=== PATIENT | female | born 1995 | race American Indian/Alaskan Native ===

== ENCOUNTER 2017-11-10 13:33 | Outpatient (CLI) | payer OTHER ==
[2017-11-10] MEDS ORDERED: LACTATED RINGERS 500 ML IV ONE (13:43)
[2017-11-10 13:53] VITALS: BP 108/57
[2017-11-10 14:39] LABS: Bacteria,Urine 1+ /HPF (Negative); Bilirubin,Urine NEG (Negative); Blood,Urine NEG (Negative); Color,Urine Yellow (Yellow); Mucus,Urine FEW /HPF; Protein,Urine <15 mg/dL mg/dL (Negative); Urobilinogen,Urine < 2.0 mg/dL (<2.0)
== END 2017-11-10 15:15 | disposition home or self-care (01) ==
LOC: TRG 13:33
PROVIDERS: ATTEND Obstetrics & Gynecology
DX: O47.02 False labor before 37 completed weeks of gestation, second trimester (principal); Z3A.19 19 weeks gestation of pregnancy
CPT/HCPCS: 59025; 81001

== ENCOUNTER 2018-01-14 13:22 | Outpatient (CLI) | payer OTHER ==
[2018-01-14] MEDS ORDERED: LACTATED RINGERS 1,000 ML IV ONE (13:36)
[2018-01-14 14:48] LABS: Bacteria,Urine 2+ /HPF (Negative); Bilirubin,Urine NEG (Negative); Blood,Urine NEG (Negative); Color,Urine Yellow (Yellow); Mucus,Urine FEW /HPF; Protein,Urine <15 mg/dL mg/dL (Negative)
[2018-01-14 15:21] VITALS: BP 119/67
== END 2018-01-14 15:30 | disposition home or self-care (01) ==
LOC: TRG 13:22
PROVIDERS: ATTEND Obstetrics & Gynecology
DX: O47.02 False labor before 37 completed weeks of gestation, second trimester (principal); Z3A.29 29 weeks gestation of pregnancy
CPT/HCPCS: 59025; 81001; 96360; J7120

== ENCOUNTER 2018-02-21 19:23 | Outpatient (CLI) | payer OTHER ==
[2018-02-21 20:06] VITALS: BP 117/56
[2018-02-21] MEDS: LACTATED RINGERS 1,000 ML IV ONE (20:39)
[2018-02-21 21:02] LABS: Bacteria,Urine 3+ /HPF (Negative); Bilirubin,Urine NEG (Negative); Blood,Urine NEG (Negative); Color,Urine Yellow (Yellow); Mucus,Urine FEW /HPF; Protein,Urine <15 mg/dL mg/dL (Negative)
== END 2018-02-21 21:51 | disposition home or self-care (01) ==
LOC: TRG 19:23
PROVIDERS: ATTEND Obstetrics & Gynecology
DX: O26.893 Other specified pregnancy related conditions, third trimester (principal); R10.30 Lower abdominal pain, unspecified; Z3A.34 34 weeks gestation of pregnancy
CPT/HCPCS: 59025; 81001; 96360; J7120

== ENCOUNTER 2018-03-03 20:04 | Outpatient (CLI) | payer OTHER ==
[2018-03-03] MEDS ORDERED: VISTARIL PO ONE (20:44)
--- NOTE | 2018-03-03 22:34 | Event Note ---
Date: 03/03/18 22 year old female at 36 weeks gestation presents to L&D triage due to feeling a contraction earlier this evening. Patient denies vaginal bleeding or leaking of fluid. Patient reports active movement. NST reactive. Accelerations present. Cervix is closed and thick; one contraction only noted on EFM. It was determinted that patient is not in active labor and patient was discharged home. labor precautions given. Patient is to follow up with her primary OB as soon as possible.
[2018-03-06 22:49] VITALS: BP 113/63
== END 2018-03-03 21:00 | disposition home or self-care (01) ==
LOC: TRG 20:04
PROVIDERS: ATTEND Obstetrics & Gynecology
DX: O47.03 False labor before 37 completed weeks of gestation, third trimester (principal); O99.013 Anemia complicating pregnancy, third trimester; Z3A.36 36 weeks gestation of pregnancy
CPT/HCPCS: 59025; Q0177

== ENCOUNTER 2018-03-06 19:52 | Outpatient (CLI) | payer OTHER ==
[2018-03-06] MEDS ORDERED: LACTATED RINGERS 500 ML IV ONE (19:58)
[2018-03-06 21:06] VITALS: BP 113/77
[2018-03-06] MEDS ORDERED: LACTATED RINGERS 1,000 ML IV ONE (21:34)
[2018-03-06] MEDS ORDERED: VISTARIL PO STA (23:08)
[2018-03-06 23:21] LABS: Bilirubin,Urine NEG (Negative); Blood,Urine NEG (Negative); Color,Urine Yellow (Yellow); Hyaline Casts,Urine 1 /LPF; Protein,Urine <15 mg/dL mg/dL (Negative); Urobilinogen,Urine < 2.0 mg/dL (<2.0); WBC,Urine < 1.0 /HPF (0.0-6.0)
== END 2018-03-06 23:37 | disposition home or self-care (01) ==
LOC: TRG 19:52
PROVIDERS: ATTEND Obstetrics & Gynecology
DX: O47.03 False labor before 37 completed weeks of gestation, third trimester (principal); Z3A.36 36 weeks gestation of pregnancy
CPT/HCPCS: 59025; 81001; 96360; 96361; J7120; Q0177

== ENCOUNTER 2018-03-10 22:05 | Inpatient (IN) | payer OTHER ==
[2018-03-10 23:31] LABS: Hematocrit 27.7 % (30.3-42.9); Hemoglobin 9.1 gm/dl (10.1-14.3); Mean Corpuscular HGB Conc 33 % (30-34); Mean Corpuscular Volume 72 fl (79-97); Platelet Count 251 K/mm3 (140-440); Red Blood Count 3.84 M/mm3 (3.65-5.03); Red Cell Distribution Width 18.7 % (13.2-15.2)
[2018-03-10 23:48] LABS: Alanine Aminotransferase 7 units/L (7-56); Uric Acid 2.6 mg/dL (3.5-7.6)
[2018-03-10 23:51] LABS: Mean Corpuscular Hemoglobin 24 pg (28-32)
[2018-03-11 00:02] LABS: Bacteria,Urine 2+ /HPF (Negative); Bilirubin,Urine NEG (Negative); Blood,Urine NEG (Negative); Color,Urine Yellow (Yellow); Mucus,Urine FEW /HPF; Protein,Urine <15 mg/dL mg/dL (Negative)
[2018-03-11] MEDS ORDERED: BRETHINE IVP PRN (02:06)
[2018-03-11] MEDS ORDERED: XYLOCAINE 2% INFILTRATI ONE (02:06)
[2018-03-11] MEDS ORDERED: BRETHINE SUB-Q PRN (02:06)
[2018-03-11] MEDS ORDERED: ePHEDrine SULFATE IV PRN ×2 (02:06→21:46)
[2018-03-11] MEDS ORDERED: MINERAL OIL PO PRN (02:06)
[2018-03-11] MEDS ORDERED: STADOL IV PRN (02:06)
[2018-03-11] MEDS ORDERED: ZOFRAN IV PRN ×2 (02:06→22:48)
[2018-03-11] MEDS ORDERED: SUBLIMAZE IV PRN (02:06)
[2018-03-11] MEDS ORDERED: POLYCILLIN/NS 2 GM/100 ML 2 GM/100 ML BAG IV ONE (02:06)
--- NOTE | 2018-03-11 02:12 | Ultrasound Report ---
FINAL REPORT EXAM: US OB LIMITED HISTORY: Leaking Fluid TECHNIQUE: Transabdominal sonographic evaluation was performed of the female pelvis for RADHA. Estimated age by dates 37 week 1 day. PRIORS: None. FINDINGS: Measurements: heart rate is documented at 137 beats per minute. Amniotic fluid index equal 6.0 cm. 2 vertical pockets are noted measuring > 2cm in depth. IMPRESSION: Single, viable intrauterine , heart rate 137 beats per minute. Borderline oligohydraminos estimated at 6.0 cm. (Note: Borderline oligohydraminos reported at 6-8cm and severe oligohydramnios < 5cm). OB consultation is indicated.
--- NOTE | 2018-03-11 02:13 | History and Physical Report ---
History of Present Illness Date of examination: 03/11/18 Chief complaint: Leaking fluid History of present illness: Pt is a 22yo BF EDC 03/31/18; EGA 37 1/7 weeks presents to L&D complaining of leaking fluid since this am. Ob u/s showed RADHA 6.0 She recieved care at [facility] since 13 weeks and course has been remarkable for a placenta previa which has since resolved, and a history of anxiety and depression for which she takes Seroquel from her Psychiatrist. records are available and GBS is negative. Past History Past Medical History: other (anxiety and depression) Past Surgical History: no surgical history Family/Genetic History: none Social history: no significant social history, - Obstetrical History Expected Date of Delivery: 03/31/18 Actual Gestation: 37 Week(s) 1 Day(s) : 4 Medications and Allergies Allergies Allergy/AdvReac Type Severity Reaction Status Date / Time fluox[facility] [[facility]] Allergy Hives Verified 03/03/18 20:15 Home Medications Medication Instructions Recorded Confirmed Last Taken Type QUEtiapine [SEROquel] 25 mg PO DAILY 03/03/18 03/11/18 03/10/18 History Active Meds: Active Medications Butorphanol Tartrate (Stadol) 2 mg IV Q2H PRN PRN Reason: Pain , Severe (7-10) Ephedrine Sulfate (Ephedrine Sulfate) 10 mg IV Q2M PRN PRN Reason: Hypotension Fentanyl (Sublimaze) 100 mcg IV Q2H PRN PRN Reason: Labor Pain Ampicillin Sodium (Ampicillin/Ns 1 Gm/50 Ml) 1 gm in 50 mls @ 100 mls/hr IV Q4HR TEA; Protocol Ampicillin Sodium (Polycillin/Ns 2 Gm/100 Ml) 2 gm in 100 mls @ 100 mls/hr IV ONCE ONE; Protocol Stop: 03/11/18 03:05 Lactated Ringer's (Lactated Ringers) 1,000 mls @ 125 mls/hr IV DIRECT TEA Oxytocin/Sodium Chloride (Pitocin/Ns 20 Unit/1000ml Drip) 20 units in 1,000 mls @ 125 mls/hr IV DIRECT TEA Lidocaine (Xylocaine 2%) 20 ml INFILTRATI ONCE ONE Stop: 03/11/18 02:07 Mineral Oil (Mineral Oil) 30 ml PO QHS PRN PRN Reason: Constipation Ondansetron HCl (Zofran) 4 mg IV Q8H PRN PRN Reason: Nausea And Vomiting Review of Systems All systems: negative - Vital Signs Vital signs: Vital Signs Pulse BP 107 H 127/73 03/10/18 22:31 03/10/18 22:31 Temp Pulse Resp BP Pulse Ox 98.9 F 94 H 18 122/87 03/10/18 22:35 03/11/18 01:41 03/10/18 22:35 03/11/18 01:41 - Physical Exam Breasts: Positive: deferred Cardiovascular: Regular rate Lungs: Positive: Clear to auscultation Abdomen: Positive: normal appearance Genitourinary (Female): Positive: normal external genitalia Vagina: Positive: discharge (clear fluid) Uterus: Positive: enlarged Extremities: Positive: normal - Obstetrical FHR: category 1 Uterine Contraction Monitor Mode: External Uterine Contraction Pattern: Irregular Uterine Tone Measurement Phase: Contraction Uterine Contraction Intensity: Mild Results Result Diagrams: 03/10/18 23:17 03/10/18 23:17 Abnormal lab results 03/10/18 03/10/18 Range/Units 23:17 23:17 WBC 12.9 H (4.5-11.0) K/mm3 Hgb 9.1 L (10.1-14.3) gm/dl Hct 27.7 L (30.3-42.9) % MCV 72 L (79-97) fl MCH 24 L (28-32) pg RDW 18.7 H (13.2-15.2) % Creatinine 0.5 L (0.7-1.2) mg/dL Uric Acid 2.6 L (3.5-7.6) mg/dL Lactate Dehydrogenase 203 H (91-180) units/L All other labs normal. Ultrasound: report reviewed Assessment and Plan - Patient Problems (1) 37 weeks gestation of Onset Date: 03/11/18 Current Visit: Yes Status: Acute Plan to address problem: A: IUP @ 37 1/7 weeks in labor PPROM - stable labor P: Admit to L&D for pitocin augmentation of labor (2) premature rupture of membranes (PPROM) with onset of labor within 24 hours of rupture in third trimester, antepartum Onset Date: 03/11/18 Current Visit: Yes Status: Acute (3) labor in third trimester with term delivery Onset Date: 03/11/18 Current Visit: Yes Status: Acute Qualifiers: Fetus number: single or unspecified fetus Qualified Code(s): O60.23X0 - Term delivery with labor, third trimester, not applicable or unspecified
[2018-03-11] MEDS: LACTATED RINGERS 1,000 ML IV SCH ×4 (05:28→22:18)
[2018-03-11] MEDS: PITOCin/NS 30 UNIT/500ML 30 UNITS/500 ML BAG IV SCH ×6 (05:30→11:07)
[2018-03-11] MEDS ORDERED: AMPICILLIN/NS 1 GM/50 ML 1 GM/50 ML BAG IV SCH (06:09)
[2018-03-11] MEDS ORDERED: NARCAN 2 MG/2 ML IV PRN (21:46)
--- NOTE | 2018-03-11 21:48 | Anesthesia Day of Surgery ---
Anesthesia Day of Surgery - Day of Surgery Patient Examined: Yes Patient H&P Reviewed: Yes Patient is NPO: Yes
--- NOTE | 2018-03-11 21:48 | Anesthesia Consultation ---
Anesthesia Consult and Med Hx Date of service: 03/11/18 - Airway Anesthetic Teeth Evaluation: Good ROM Head & Neck: Adequate Mental/Hyoid Distance: Adequate Mallampati Class: Class II Intubation Access Assessment: Possibly Difficult - Pulmonary Exam CTA: Yes - Cardiac Exam Cardiac Exam: RRR - Pre-Operative Health Status ASA Pre-Surgery Classification: ASA3 Proposed Anesthetic Plan: Epidural, Spinal - Pulmonary Hx Smoking: No Hx Asthma: Yes COPD: No - Cardiovascular System Hx Hypertension: No Hx Heart Attack/AMI: No Hx Pacemaker: No Hx Internal Defibrillator: No - Central Nervous System Hx Seizures: No 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
[2018-03-11] MEDS ORDERED: fentaNYL-BUPIV 2 MCG/ML-0.125% 200 MCG/100 ML BAG EPIDURAL SCH (22:00)
[2018-03-11] MEDS: PITOCin/NS 20 UNIT/1000ML DRIP 20 UNITS/1,000 ML BAG IV SCH ×2 (22:18→22:55)
--- NOTE | 2018-03-11 22:47 | Procedure Note ---
OB Delivery Note - Delivery Date of Delivery: 03/11/18 Surgeon: IVAN ABERNATHY Estimated blood loss: 300cc - Vaginal Delivery presentation: vertex Delivery position: OP Intrapartum events: PROM->1hr before delivery, extend. bradycardia Delivery induction: oxytocin Delivery augmentation: rupture of membranes, pitocin Delivery monitor: external FHT, external uterine Route of delivery: vacuum extraction Indicators for instrumentation: nonreassuring FHR tracing Delivery placenta: spontaneous Delivery cord: 3 umbilical vessels Episiotomy: none Delivery laceration: 2nd degree (perineal) Delivery repair: vicryl Anesthesia: epidural Delivery comments: Infant delivered OP with the aid of a vacuum, 6 pulls, no pop-offs, and handed to awaiting Peds/RT in attendance - Infant A at 1 minute: 7 at 5 minutes: 9 Infant Gender: Female (2666gms)
[2018-03-11] MEDS ORDERED: PHENERGAN PR PRN (22:48)
[2018-03-11] MEDS ORDERED: DULCOLAX PR PRN (22:48)
[2018-03-11] MEDS ORDERED: TYLENOL PO PRN (22:48)
[2018-03-11] MEDS ORDERED: PHENERGAN PO PRN (22:48)
[2018-03-11] MEDS ORDERED: BENADRYL PO PRN (22:48)
[2018-03-11] MEDS ORDERED: MILK OF MAGNESIA PO PRN (22:48)
[2018-03-11] MEDS ORDERED: LANSINOH TP PRN (22:48)
[2018-03-11] MEDS ORDERED: SODIUM CHLORIDE FLUSH SYRINGE 10 ML IV NR (23:00)
[2018-03-11] MEDS ORDERED: PITOCin/NS 20 UNIT/1000ML DRIP 20 UNITS/1,000 ML BAG IV SCH (23:00)
[2018-03-12] MEDS: TUCKS PAD TP PRN (00:55)
[2018-03-12] MEDS: MOTRIN PO SCH ×4 (02:44→23:44)
[2018-03-12] MEDS ORDERED: M-M-R II VACCINE SUB-Q ONE (06:00)
[2018-03-12] MEDS ORDERED: BOOSTRIX IM ONE ×2 (06:00→20:00)
[2018-03-12] MEDS: FEOSOL PO SCH ×2 (10:18→21:02)
[2018-03-12] MEDS: COLACE PO SCH ×2 (10:18→21:03)
[2018-03-12] MEDS: PRENATAL VITAMIN PO SCH (10:18)
[2018-03-12] MEDS: NORCO 5/325 PO PRN (10:19)
--- NOTE | 2018-03-12 10:57 | Progress Note ---
Assessment and Plan - Patient Problems (1) 37 weeks gestation of Onset Date: 03/11/18 Current Visit: Yes Status: Resolved (2) premature rupture of membranes (PPROM) with onset of labor within 24 hours of rupture in third trimester, antepartum Onset Date: 03/11/18 Current Visit: Yes Status: Resolved (3) labor in third trimester with term delivery Onset Date: 03/11/18 Current Visit: Yes Status: Resolved Qualifiers: Fetus number: single or unspecified fetus Qualified Code(s): O60.23X0 - Term delivery with labor, third trimester, not applicable or unspecified (4) (normal spontaneous vaginal delivery) Onset Date: 03/12/18 Current Visit: Yes Status: Resolved Plan to address problem: A: S/P - PPD #1 Doing well Asymptomatic anemia- stable P: May go home tomorrow. Subjective - Subjective Date of service: 03/12/18 Principal diagnosis: s/p - PPD #1 Interval history: Pt is feeling well without complaints. Bleeding improved. Patient reports: appetite normal, voiding normally, pain well controlled, flatus , ambulating normally, no dizzy ambulation, no nauseated : doing well, nursing well Objective - Vital Signs Latest vital signs: Vital Signs Temp Pulse Resp BP BP Pulse Ox 03/12/18 08:31 98.6 F 120 H 18 95/42 98 03/12/18 05:39 111 H 100/51 98 03/12/18 05:25 98.9 F 98 H 18 100/51 98 03/12/18 03:44 16 03/12/18 02:44 18 03/12/18 00:06 98.7 F 99 H 18 108/54 99 03/11/18 23:17 98.2 F 03/11/18 22:54 100 H 120/60 03/11/18 22:46 106 H 100 03/11/18 22:41 98 H 99 03/11/18 22:36 100 H 99 03/11/18 22:31 101 H 99 03/11/18 22:28 98.1 F 03/11/18 22:26 90 100 03/11/18 22:22 80 122/69 03/11/18 22:21 81 100 03/11/18 22:20 85 120/63 07/30/18 22:18 90 121/58 07/30/18 22:16 109 H 135/58 98 03/11/18 22:14 91 H 131/70 03/11/18 22:11 96 H 99 03/11/18 22:10 111 H 132/60 03/11/18 22:08 80 126/66 03/11/18 22:06 87 147/73 03/11/18 22:04 82 125/60 03/11/18 22:03 90 100 03/11/18 22:00 120 H 105/59 03/11/18 21:58 91 H 108/65 90 03/11/18 21:56 104 H 100/63 78 L 03/11/18 21:54 83 102/69 03/11/18 21:53 87 97 03/11/18 21:52 126 H 103/75 03/11/18 21:50 48 L 114/75 03/11/18 21:48 82 109/69 71 L 03/11/18 21:46 87 100/63 03/11/18 21:44 80 91/54 03/11/18 21:43 92 H 100 03/11/18 21:42 92 H 110/59 93 03/11/18 21:40 81 112/59 03/11/18 21:38 80 110/58 97 03/11/18 21:36 74 98/55 03/11/18 21:34 75 103/56 03/11/18 21:33 75 100 03/11/18 21:32 89 114/56 03/11/18 21:31 106 H 94 03/11/18 21:30 97 H 127/60 03/11/18 21:28 104 H 130/62 99 03/11/18 21:26 115 H 132/61 03/11/18 21:24 90 129/64 03/11/18 21:23 89 100 03/11/18 21:22 89 126/62 03/11/18 21:20 90 121/62 03/11/18 21:18 100 H 120/64 100 03/11/18 21:16 103 H 116/61 03/11/18 21:13 101 H 100 03/11/18 21:06 83 109/56 100 03/11/18 21:01 90 85 03/11/18 20:56 83 100 03/11/18 20:51 78 100 07/30/18 20:50 82 106/57 03/11/18 20:46 86 100 03/11/18 20:41 92 H 100 03/11/18 20:36 80 100 03/11/18 20:35 88 135/60 03/11/18 20:31 85 100 03/11/18 20:26 93 H 100 03/11/18 20:21 84 100 03/11/18 20:06 77 117/55 03/11/18 19:51 93 H 127/74 03/11/18 19:38 78 131/62 03/11/18 19:32 97.9 F 78 16 131/62 03/11/18 18:04 85 107/61 03/11/18 17:51 88 119/68 03/11/18 17:35 89 110/58 03/11/18 17:20 94 H 107/63 03/11/18 16:50 90 125/73 03/11/18 16:36 88 126/72 03/11/18 16:22 80 122/66 03/11/18 16:06 80 115/69 03/11/18 15:35 90 125/74 03/11/18 15:20 99 H 122/73 03/11/18 15:05 91 H 123/76 03/11/18 14:51 88 124/69 03/11/18 14:35 96 H 115/74 03/11/18 14:06 95 H 131/89 03/11/18 13:51 97 H 127/76 03/11/18 13:48 98.8 F 03/11/18 13:35 95 H 128/77 03/11/18 13:19 93 H 118/67 03/11/18 13:05 92 H 128/82 03/11/18 12:49 90 122/72 03/11/18 12:35 93 H 118/74 03/11/18 12:19 97 H 119/60 03/11/18 12:07 96 H 123/62 03/11/18 11:51 97 H 110/69 03/11/18 11:35 102 H 111/68 03/11/18 11:20 103 H 116/70 03/11/18 11:04 100 H 115/62 Intake and Output 03/11/18 03/12/18 03/12/18 22:59 06:59 14:59 Intake Total 1097.917 600 Output Total 1100 Balance 1097.917 -500 Intake: IV 1097.917 Lactated Ringers 1,000 ml 1020.834 @ 125 mls/hr IV DIRECT TEA Rx#:[id number] PITOCin/NS 20 UNIT/1000ML 77.083 DRIP 20 units In 1,000 ml @ 125 mls/hr IV DIRECT TEA Rx#:[id number] Oral 600 Output: Urine 1100 Void 1100 Other: Total, Intake Amount 240 Total, Output Amount 900 # Voids Void 1 Estimated Blood Loss 300 - Exam Breasts: Present: deferred Cardiovascular: Present: Regular rate Lungs: Present: Clear to auscultation Abdomen: Present: normal appearance, soft Uterus: Present: normal, firm, fundal height below umbilicus Extremities: Present: normal - Labs Labs: Laboratory Tests 03/10/18 03/10/18 03/10/18 23:15 23:17 23:17 WBC 12.9 H RBC 3.84 Hgb 9.1 L Hct 27.7 L MCV 72 L MCH 24 L MCHC 33 RDW 18.7 H Plt Count 251 Creatinine 0.5 L Estimated GFR > 60 Uric Acid 2.6 L AST 19 ALT 7 Lactate Dehydrogenase 203 H Urine Color Yellow Urine Turbidity Clear Urine pH 7.0 Ur Specific [place] 1.012 Urine Protein <15 mg/dl Urine Glucose (UA) 50 Urine Ketones Neg Urine Blood Neg Urine Nitrite Neg Urine Bilirubin Neg Urine Urobilinogen 2.0 Ur Leukocyte Esterase Mod Urine WBC (Auto) 2.0 Urine RBC (Auto) 3.0 U Epithel Cells (Auto) 5.0 Urine Bacteria (Auto) 2+ Urine Mucus Few RPR Blood Type Antibody Screen 03/11/18 03/11/18 03/12/18 06:08 06:08 11:19 WBC RBC Hgb 7.1 L Hct 23.0 L MCV MCH MCHC RDW Plt Count Creatinine Estimated GFR Uric Acid AST ALT Lactate Dehydrogenase Urine Color Urine Turbidity Urine pH Ur Specific [place] Urine Protein Urine Glucose (UA) Urine Ketones Urine Blood Urine Nitrite Urine Bilirubin Urine Urobilinogen Ur Leukocyte Esterase Urine WBC (Auto) Urine RBC (Auto) U Epithel Cells (Auto) Urine Bacteria (Auto) Urine Mucus RPR Nonreactive Blood Type O POSITIVE Antibody Screen Negative
[2018-03-12 12:18] LABS: Hemoglobin 7.1 gm/dl (10.1-14.3)
--- NOTE | 2018-03-12 15:55 | Discharge Summary ---
Providers - Providers Date of Admission: 03/11/18 03:04 Date of discharge: 03/13/18 Attending physician: IVAN ABERNATHY Primary care physician: IVAN ABERNATHY Hospitalization Reason for admission: labor, rupture of membranes, IUP at term, other ( Oligohydramnios) Delivery: Episiotomy: none Laceration: none Other procedures: none complications: none Discharge diagnosis: IUP at term delivered baby: female Hospital course: Unremarkable. Condition at discharge: Good Disposition: DC-01 TO HOME OR SELFCARE - Discharge Diagnoses (1) 37 weeks gestation of Status: Resolved (2) premature rupture of membranes (PPROM) with onset of labor within 24 hours of rupture in third trimester, antepartum Status: Resolved (3) labor in third trimester with term delivery Status: Resolved Qualifiers: Fetus number: single or unspecified fetus Qualified Code(s): O60.23X0 - Term delivery with labor, third trimester, not applicable or unspecified (4) (normal spontaneous vaginal delivery) Status: Resolved Plan - Discharge Medications Prescriptions: Ferrous Sulfate [Feosol 325 MG tab] 325 mg PO BID #60 tablet Ibuprofen [Motrin 600 MG tab] 600 mg PO Q6H #30 tablet Vit-Fe Fumar-FA [ Vitamin] 1 each PO QDAY #30 tablet - Provider Discharge Summary Activity: routine, no sex for 6 weeks, no heavy lifting 4 weeks, no strenuous exercise Diet: routine Instructions: routine Additional instructions: [] Smoking cessation referral if applicable(refer to patient education folder for contact #) [] Refer to [facility]'s [facility] Booklet Call your doctor immediately for: * Fever > 100.5 * Heavy vaginal bleeding ( >1 pad per hour) * Severe persistent headache * Shortness of breath * Reddened, hot, painful area to leg or breast * Drainage or odor from incision. * Keep incision clean and dry at all times and follow doctor's instructions regarding bathing/showering - Follow up plan Follow up: IVAN ABERNATHY MD [Primary Care Provider] - 6 Weeks BALDEMAR HAWKINS CNM [Advanced Practice Nurse] - 6 Weeks
[2018-03-12] MEDS ORDERED: DERMOPLAST TP PRN (19:44)
[2018-03-13] MEDS: NORCO 5/325 PO PRN ×3 (01:55→21:04)
[2018-03-13] MEDS: MOTRIN PO SCH ×4 (05:48→21:05)
[2018-03-13] MEDS: FEOSOL PO SCH ×2 (11:01→21:04)
[2018-03-13] MEDS: COLACE PO SCH ×2 (11:01→21:05)
[2018-03-13] MEDS: PRENATAL VITAMIN PO SCH (11:01)
[2018-03-13] MEDS: TUCKS PAD TP PRN (15:35)
[2018-03-14 01:07] VITALS: BP 100/50
== END 2018-03-13 22:05 | disposition home or self-care (01) | DRG 775 ==
LOC: TRG 22:05 → LD 03-11 03:04 → OB 03-12 00:17
PROVIDERS: ADMIT Obstetrics & Gynecology; ATTEND Obstetrics & Gynecology
PROC: 10D07Z6 Extraction of Products of Conception, Vacuum, Via Natural or Artificial Opening (ICD-10-PCS; principal; 2018-03-11)
PROC: 00HU33Z Insertion of Infusion Device into Spinal Canal, Percutaneous Approach (ICD-10-PCS; 2018-03-11)
PROC: 3E033VJ Introduction of Other Hormone into Peripheral Vein, Percutaneous Approach (ICD-10-PCS; 2018-03-11)
PROC: 3E0R3BZ Introduction of Anesthetic Agent into Spinal Canal, Percutaneous Approach (ICD-10-PCS; 2018-03-11)
PROC: 3E0234Z Introduction of Serum, Toxoid and Vaccine into Muscle, Percutaneous Approach (ICD-10-PCS; 2018-03-12)
DX: O42.013 Preterm premature rupture of membranes, onset of labor within 24 hours of rupture, third trimester (principal); O99.344 Other mental disorders complicating childbirth; O76 Abnormality in fetal heart rate and rhythm complicating labor and delivery; F41.9 Anxiety disorder, unspecified; O99.02 Anemia complicating childbirth; D64.9 Anemia, unspecified; F32.9 Major depressive disorder, single episode, unspecified; O70.1 Second degree perineal laceration during delivery; Z88.8 Allergy status to other drugs, medicaments and biological substances; Z3A.37 37 weeks gestation of pregnancy; Z37.0 Single live birth; Z79.899 Other long term (current) drug therapy; Z23 Encounter for immunization
CPT/HCPCS: 36415; 76815; 81001; 82565; 83615; 84450; 84460; 84550; 85014; 85018; 85027; 86592; 86850; 86900; 86901; 90715; 99211; A6250; G0463; J0290; J0595; J2590; J7120